=== PATIENT | female | born 1985 | race Caucasian/White ===

== ENCOUNTER → 2016-12-26 | Outpatient (REF) | payer BC | LOC: M SFHCWAGY 15:36 | PROVIDERS: ATTEND Nurse Practitioner Family | DX: Z01.419 Encounter for gynecological examination (general) (routine) without abnormal findings (principal); Z11.51 Encounter for screening for human papillomavirus (HPV); R87.610 Atypical squamous cells of undetermined significance on cytologic smear of cervix (ASC-US) ==

== ENCOUNTER → 2016-12-26 | Outpatient (REF) | payer BC | LOC: M LAB REF 17:50 | PROVIDERS: ATTEND Nurse Practitioner Family | DX: Z11.3 Encounter for screening for infections with a predominantly sexual mode of transmission (principal) ==

== ENCOUNTER → 2017-01-14 | Outpatient (REF) | payer BC | LOC: M SFHCWAGY 08:43 | PROVIDERS: ATTEND Nurse Practitioner Women's Health | DX: N87.0 Mild cervical dysplasia (principal) ==

== ENCOUNTER → 2017-07-12 | Outpatient (REF) | payer BC ==
[2017-07-12 11:44] LABS: ALBUMIN 3.5 GM/DL (3.2-5.2); ALKALINE PHOSPHATASE 48 U/L (45-117); ALT/SGPT 48 U/L (12-78); ANION GAP 10 MEQ/L (8-16); AST/SGOT 28 U/L (7-37); BILIRUBIN,TOTAL 0.3 MG/DL (0.2-1.0); BLOOD UREA NITROGEN 12 MG/DL (7-18); CALCIUM LEVEL 8.4 MG/DL (8.5-10.1); CARBON DIOXIDE LEVEL 27 MEQ/L (21-32); CHLORIDE LEVEL 103 MEQ/L (98-107); CHOLESTEROL LEVEL 202 MG/DL (<200); GLOMERULAR FILTRATION RATE > 60.0 (>60); GLUCOSE, FASTING 87 MG/DL (70-105); POTASSIUM SERUM 4.1 MEQ/L (3.5-5.1); SODIUM LEVEL 140 MEQ/L (136-145); TRIGLYCERIDES LEVEL 67 MG/DL (<150)
== END ==
LOC: M SFHCCAPE 07:57 → M LABDRAWC 08:09
PROVIDERS: ATTEND Physician Assistant
DX: E78.5 Hyperlipidemia, unspecified (principal)

== ENCOUNTER → 2018-06-02 | Outpatient (REF) | payer OTHER ==
[2018-06-04 14:13] LABS: HPV HYBRID CAPTURE II Negative (Negative)
== END ==
LOC: M SFHCWAGY 16:03
DX: Z12.4 Encounter for screening for malignant neoplasm of cervix (principal)

== ENCOUNTER → 2018-10-20 | Outpatient (REF) | payer OTHER ==
[2018-10-20 12:23] LABS: BASO # 0.1 10^3/uL (0.0-0.2); BASO % 0.9 % (0.0-1.0); EOS # 0.6 10^3/uL (0.0-0.50); EOS % 5.6 % (0.0-3.0); HEMATOCRIT 42.1 % (36.0-47.0); HEMOGLOBIN 13.2 g/dl (12.0-15.5); LYMPH # 3.1 10^3/uL (1.5-4.5); MEAN CORPUSCULAR HEMOGLOBIN 27.5 pg (27.0-33.0); MEAN CORPUSCULAR HGB CONC 31.4 g/dl (32.0-36.5); MEAN CORPUSCULAR VOLUME 87.7 fl (80.0-96.0); MONO # 0.6 10^3/uL (0.0-0.8); MONO % 5.8 % (0.0-5.0); NEUTROPHILS # 5.8 10^3/uL (1.8-7.7); NEUTROPHILS % 57.1 % (36.0-66.0); PLATELET COUNT, AUTOMATED 330 10^3/uL (150-450); WHITE BLOOD COUNT 10.2 10^3/uL (4.0-10.0)
[2018-10-20 12:35] LABS: ALBUMIN 3.4 GM/DL (3.2-5.2); ALT/SGPT 30 U/L (12-78); BILIRUBIN,TOTAL 0.2 MG/DL (0.2-1.0); BLOOD UREA NITROGEN 9 MG/DL (7-18); CALCIUM LEVEL 8.3 MG/DL (8.5-10.1); CARBON DIOXIDE LEVEL 27 MEQ/L (21-32); CHLORIDE LEVEL 106 MEQ/L (98-107); CHOLESTEROL LEVEL 158 MG/DL (<200); CREATININE FOR GFR 0.77 MG/DL (0.55-1.30); FREE T4 0.87 NG/DL (0.76-1.46); GLOMERULAR FILTRATION RATE > 60.0 (>60); GLUCOSE, FASTING 100 MG/DL (70-100); HDL CHOLESTEROL 61 MG/DL (>40); LDL CHOLESTEROL 80 MG/DL (<100); NON-HDL-C 97 MG/DL; POTASSIUM SERUM 3.9 MEQ/L (3.5-5.1); SODIUM LEVEL 141 MEQ/L (136-145); TOTAL 25(OH) VITAMIN D 25.7 NG/ML (30.0-100.0); TOTAL PROTEIN 6.9 GM/DL (6.4-8.2); TRIGLYCERIDES LEVEL 85 MG/DL (<150)
[2018-10-20 12:54] LABS: HEMOGLOBIN A1c 5.4 %
== END ==
LOC: M SFHCCLAY 07:21
PROVIDERS: ATTEND Physician Assistant
DX: E78.5 Hyperlipidemia, unspecified (principal); E66.01 Morbid (severe) obesity due to excess calories

== ENCOUNTER → 2019-07-27 | Outpatient (CLI) | payer OTHER ==
--- NOTE | 2019-08-12 04:04 | ECWPNPC ---
PATIENT NAME: DARIN SAM : 1985 GENDER: FEMALE VISIT DATE: 07/27/2019 DISCHARGE DATE: 07/27/19 1604 VISIT LOCKED DATE TIME: PHYSICIAN: BRAIN TOVAR MD RESOURCE: BRAIN TOVAR MD REASON FOR APPOINTMENT 1. CHRONIC LOW BACK PAIN HISTORY OF PRESENT ILLNESS PAIN SCREENING: PATIENT HAS A COMPLAINT OF ACUTE OR CHRONIC PAIN :YES 33 YEAR OLD FEMALE PATIENT WITH A HISTORY OF CHRONIC LOW BACK PAIN. THE PATIENT DESCRIBES THE PAIN ACHING, SHARP, STABBING, SHOOTING, AND INTERMITTENT WITH A PAIN SCORE OF 4-9/10 DEPENDING ON PHYSICAL ACTIVITY. THE PATIENT STATES HER PAIN BEGINS IN HER LOW BACK AND RADIATES DOWN BOTH LEGS. THE PATIENT SAYS HER LOW BACK PAIN BEGAN AROUND 6 YEARS AGO. THE PATIENT SAYS HER PAIN INCREASES WITH ACTIVITIES AND IS AFFECTING HER ABILITY TO PERFORM HER DAILY ACTIVITIES SUCH WALKING, CLEANING, AND GROCERY SHOPPING. PATIENT DENIES UNEXPLAINABLE WEIGHT LOSS, FEVER, CHILLS, NEW CHANGES ON HER URINARY OR BOWEL CONTROL. FALL RISK SCREENING: SCREENING :NO FALLS REPORTED IN THE LAST YEAR CURRENT MEDICATIONS TAKING PROBIOTIC - CAPSULE 1 CAPSULE ORALLY DAILY TAKING PRE-PADILLA - TABLET 1 TABLET ORALLY ONCE A DAY NOT-TAKING NAPROSYN 500 MG TABLET 1 TABLET WITH FOOD OR MILK NEEDED ORALLY EVERY 12 HRS NOT-TAKING MULTIVITAMINS TAB TABLET 1 PO ORALLY DAILY NOT-TAKING FOLIC ACID 400 MCG TABLET 1 TABLET ORALLY ONCE A DAY NOT-TAKING HYDROXYZINE HCL 25 MG TABLET 1-2 TABLETS NEEDED ORALLY EVERY 8 HRS NOT-TAKING ESCITALOPRAM OXALATE 10 MG TABLET 1 TABLET ORALLY ONCE A DAY NOT-TAKING CYCLOBENZAPRINE HCL 5 MG TABLET 1 TABLET NEEDED ORALLY THREE TIMES A DAY NOT-TAKING IBUPROFEN 400 MG TABLET 1 TABLET ORALLY THREE TIMES A DAY NOT-TAKING BENZONATATE 200 MG CAPSULE 1 CAPSULE ORALLY THREE TIMES A DAY NOT-TAKING [facility] VITAMIN D3 1000 UNIT TABLET CHEWABLE 1 TABLET ORALLY ONCE A DAY NOT-TAKING LOSEASONIQUE 0.1-0.02 & 0.01 MG TABLET 1 TABLET ORALLY ONCE A DAY DISCONTINUED TAMIFLU 75 MG CAPSULE 1 CAPSULE ORALLY TWICE A DAY MEDICATION LIST REVIEWED AND RECONCILED WITH THE PATIENT PAST MEDICAL HISTORY DYSMENORRHEA[MODERATE] KIDNEY INFECTION 05/12 BACK PAIN ANXIETY ALLERGIES N.K.D.A. SURGICAL HISTORY COLPOSCOPY WITH [facility] 01/02/2016 & 01/14/17 LASIK BILATERALLY FAMILY HISTORY FATHER: ALIVE 61 YRS, DIAGNOSED WITH HYPERTENSION MOTHER: ALIVE 58 YRS, HYPERTENSION SIBLINGS: ALIVE PATERNAL GRAND FATHER: ALIVE, [place] MATERNAL GRAND FATHER: , CANCER, PROSTATE, CANCER, SKIN 1 SISTER(S) - HEALTHY. FAMILY HISTORY OF SKIN CA, LEUKEMIA AND CA OF THE ESOPHAGUS. SOCIAL HISTORY GENERAL: TOBACCO USE ARE YOU A:FORMER SMOKER HOW LONG HAS IT BEEN SINCE YOU LAST SMOKED?1-5 YEARS VAPORNO E-CIGARETTENO HIV / HEP-C SCREENING HIV TEST OFFERED TO PATIENT:YES DATE OFFERED:07/09/2017 TEST ACCEPTED:NO HEP-C TEST OFFERED TO PATIENT:YES DATE OFFERED:07/09/2017 REASON:PATIENT DECLINED TEST ACCEPTED:NO REASON:PATIENT DECLINED OTHERS AT HOME: SPOUSE. EDUCATION LEVEL OF EDUCATION:COLLEGE DIET: REGULAR. LANGUAGE VIETNAMESE. DOMESTIC VIOLENCE DO YOU FEEL SAFE IN YOUR ENVIRONMENT?YES BMI CARE GOAL FOLLOW-UP ABOVE NORMAL BMI FOLLOW-UPGIVING ENCOURAGEMENT TO EXERCISE RECREATIONAL DRUG USE DRUG USE?NO EXERCISE: 3-4 X A WEEK. 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 NEEDED?NO PAIN CLINIC PFS, CLERGY, PUBLIC HEALTH REFERRALS HAS THE PATIENT BEEN EDUCATED REGARDING HIS/HER PLAN OF CARE?YES HAS THE PATIENT BEEN EDUCATED REGARDING PAIN, THE RISK FOR PAIN, THE IMPORTANCE OF EFFECTIVE PAIN MANAGEMENT, AND THE PAIN ASSESSMENT PROCESS?YES LATEX QUESTIONNAIRE LATEX ALLERGY : HAVE YOU EVER DEVELOPED ANY TYPE OF REACTION AFTER HANDLING LATEX PRODUCTS SUCH RUBBER GLOVES, CONDOMS, DIAPHRAGMS, BALLOONS, SOCKS, OR UNDERWEAR?NO LATEX ALLERGY : HAVE YOU EVER DEVELOPED ANY TYPE OF REACTION DURING OR AFTER DENTAL APPOINTMENT, VAGINAL/RECTAL EXAMINATION, SURGICAL PROCEDURE, OR ANY OTHER EXPOSURE?NO LATEX RISK : HAVE YOU EVER HAD ANY DIFFICULTY BREATHING OR HIVES AFTER EATING OR HANDLING ANY FRUITS, OR VEGETABLES; SUCH KIWI, BANANAS, STONE FRUITS, OR CHESTNUTSNO LATEX RISK : DO YOU HAVE A PREVIOUS PERSONAL HISTORY OF MORE THAN NINE SURGERIES, SPINA BIFIDA, OR REPEATED CATHERIZATIONS? NO LATEX RISK : ARE YOU FREQUENTLY EXPOSED TO LATEX PRODUCTS IN YOUR OCCUPATION?NO DATE ASKED : 07/27/2019 CAFFEINE CAFFEINE USE?YES 1-2 CUPS OF COFFEE ADVANCE DIRECTIVE ADVANCE DIRECTIVE DISCUSSED WITH PATIENT:YES 07/27/19 PT DOES NOT HAVE ANY ADVANCED DIRECTIVES AND SHE DECLINES INFORMATION ON HCP AT THIS TIME. AD ADVENTIST NO BAPTIST BELIEFS THAT WOULD IMPACT HEALTH CARE. MARITAL STATUS: SINGLE. 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 SEXUAL HX HAD SEX IN THE LAST 12 MONTHS (VAGINAL, ORAL, OR ANAL)?YES WITHMEN ONLY PREVENTION STRATEGIES DISCUSSED:OTHER USE PROTECTION?YES HOW OFTEN?ALL OF THE TIME LMP:04/03/18 HAVE YOU EVER HAD AN STD?NO HOSPITALIZATION/MAJOR DIAGNOSTIC PROCEDURE NO HOSPITALIZATION HISTORY. REVIEW OF SYSTEMS REVIEWED BY: PROVIDER: BRAIN TOVAR MD . CONSTITUTIONAL: ANY CHANGE IN YOUR MEDICAL CONDITION? NO . CHILLS NO . FEVER NO . INFECTION: DO YOU HAVE NEW INFECTIONS? NO . DO YOU HAVE HISTORY OF MRSA? NO . MUSCULOSKELETAL: ANY NEW PATTERNS OF PAIN OR NUMBNESS? YES, PAIN WILL COME AND GO WITH TIMES BEING SEVERE WHERE SHE IS UNABLE TO DO ANYTHING . SYTEMIC LUPUS NO . GASTROENTEROLOGY: ANY NEW CHANGE IN BOWEL CONTROL? NO . BARRETTS ESOPHAGUS NO . CIRRHOSIS NO . HEPATITIS NO . LIVER FAILURE NO . ACID REFLUX NO . UNEXPLAINED WEIGHT LOSS NO . GENITOURINARY: ANY NEW CHANGE IN BLADDER CONTROL? NO . IS THERE A CHANCE YOU COULD BE ? NO . HEMATOLOGY/LYMPH: DO YOU TAKE ANY BLOOD THINNERS? (FOR EXAMPLE- COUMADIN, PLAVIX, AGGRENOX, PLATEL, PRADAXA, OR XARELTO) NO . WHEN WAS YOUR LAST DOSE? DATE: TIME: . LOW PLATELET COUNT NO . SICKLE CELL DISEASE NO . VON WILLIEBRANDS NO . FACTOR V LEIDEN NO . THALLASEMIA NO . ANEMIA NO . EASY BRUISING NO . NEUROLOGY: HAVE YOU FALLEN IN THE PAST 12 MONTHS? NO . ANY NEW EXTREMITY NUMBNESS OR WEAKNESS? NO . HEAD INJURY NO . DEMENTIA NO . CEREBRAL PALSY NO . MULTIPLE SCLEROSIS NO . DIZZINESS NO . HEADACHE NO . STROKES NO . VERTIGO NO . CARDIOLOGY: DO YOU HAVE A PACEMAKER OR DEFIBRILLATOR? NO . ANGINA NO . HEART ATTACK NO . HEART SURGERY NO . CONGESTIVE HEART FAILURE/FLUID OVERLOAD NO . CHEST PAIN NO . HIGH BLOOD PRESSURE NO . IRREGULAR HEART BEAT NO . RESPIRATORY: HAVE YOU BEEN SICK IN THE PAST WEEK? NO . FEVER NO . FLU LIKE SYMPTOMS? NO . CPAP NO . BYPAP NO . ASTHMA NO . EMPHYSEMA NO . CHRONIC LUNG DISEASES NO . SHORTNESS OF BREATH ON EXERTION NO . COUGH NO . SNORING YES . INTEGUMENTARY: DO YOU HAVE ANY RASHES OR OPEN SORES? NO . ALLERGIC/IMMUNO: ARE YOU ALLERGIC TO IV DYE? NO . ANY NEW ALLERGIES? NO . PSYCHIATRIC: DO YOU HAVE THOUGHTS OF HURTING YOURSELF OR SOMEONE ELSE? NO . ARE YOU ABUSED, NEGLECTED, OR IN AN UNSAFE ENVIRONMENT? NO . ENDOCRINOLOGY: ARE YOU DIABETIC? NO . THYROID DISORDER NO . OTHER: DO YOU NEED ANY PRESCRIPTIONS? NO . IF YES, PLEASE LIST: ____ . ANY NEW PROBLEMS WITH YOUR MEDICATIONS? NO . WHEN DID YOU LAST EAT? ____ . WHEN DID YOU LAST DRINK? ____ . WHAT DID YOU LAST DRINK? ____ . NAME OF PERSON DRIVING YOU HOME? ____ . DO YOU HAVE ANY OTHER QUESTIONS OR CONCERNS NO . VITAL SIGNS WT 257.6 LBS, HT 65 1/2, BMI 42.21 INDEX, BP 134/77 MM HG, HR 81 /MIN, RR 18 /MIN, TEMP 97.9 F, OXYGEN SAT % 98%, SAFE IN ENV? (Y/N) Y, NA INITIALS SC 14:38, REVIEWED BY: KRISTY. EXAMINATION GENERAL EXAMINATION: PATIENT IS ALERT O X 3 AND COOPERATIVE. LUNGS CLEAR, TO AUSCULTATION. HEART: NO MURMURS OR GALLOPS; FACIAL CRANIAL NERVES ARE GROSSLY NORMAL. GOOD SYMMETRY OF FACIAL MUSCLE MOVEMENT. NORMAL VISUAL HERNANDEZ. TENDERNESS IN THE LOW BACK OVER THE SACROILIAC JOINT. FABERE TEST IS POSITIVE FOR BILATERAL SACROILIAC JOINT DYSFUNCTION. MRI OF THE LUMBAR SPINE DONE ON 11/23/2015 SHOWS NORMAL RESULTS. ASSESSMENTS SACROILIITIS, NOT ELSEWHERE CLASSIFIED - M46.1 (PRIMARY) SACROILIAC JOINT DYSFUNCTION - M53.3 TREATMENT SACROILIITIS, NOT ELSEWHERE CLASSIFIED [facility] PELVIS WITHOUT [id number] CLINICAL NOTES: WE DISCUSSED SEVERAL ISSUES WITH MS. SAM'S PAIN MANAGEMENT CASE. I AM REQUESTING FOR A PELVIC CT SCAN TO BE DONE TO CHECK FOR ANY POTENTIAL ISSUES OVER THE PELVIC REGION. IF NOTHING ABNORMAL SHOWS, I WILL MOVE FORWARD WITH A BILATERAL SACROILIAC JOINT BLOCK. THE PATIENT WILL FOLLOW UP WITH THE NURSE PRACTITIONER IN 2 WEEKS TO GO OVER THE CT SCAN RESULTS AND DISCUSS OPTIONS TO MOVE FORWARD WITH. INSTRUCTIONS WERE GIVEN, QUESTIONS WERE ANSWERED, PATIENT REPORTS UNDERSTANDING AND AGREES WITH THE PLAN. I, PEARL PASTRANA, DOCUMENTED THE ABOVE INFORMATION ACTING A SCRIBE FOR DR. TOVAR. I HAVE REVIEWED THE ABOVE DOCUMENT, WRITTEN BY PEARL URBANOIBReyes AND I VERIFY THAT IT IS ACCURATE. DEAR CHIKA HWANG PA-C: THANK YOU FOR YOUR KIND REFERRAL OF DARIN SAM. IF YOU WANT TO DISCUSS HER CASE WITH ME PLEASE CALL ME AT THE PAIN CENTER AT [phone]. SINCERELY, BRAIN TOVAR MD PAIN MEDICINE . SACROILIAC JOINT DYSFUNCTION [facility] CT PELVIS WITHOUT [id number] PROCEDURE CODES FA211 ESTABILISHED PATIENT [facility] FACILITY CHARGE G8427 CURRENT MEDS W/DOSAGES DOCUMENTED G8730 PAIN ASSESS POS TOOL F/U PLAN DOC DISPOSITION & COMMUNICATION FOLLOW UP 2 WEEKS (REASON: ORDER PELVIC CT/F/UP W/ VEGETABLE GROWER IN [address] RESULTS) ELECTRONICALLY SIGNED BY BRAIN TOVAR MD, MD ON 08/11/2019 AT 07:54 PM EST DISCLAIMER : THIS IS A VISIT SUMMARY EXTRACTED FROM THE [employer] CHART. IT IS NOT A COPY OF THE [employer] PROGRESS NOTE. MTDShyam
== END ==
LOC: M PAIN 14:30
PROVIDERS: ATTEND Anesthesiology
DX: M46.1 Sacroiliitis, not elsewhere classified (principal); M53.3 Sacrococcygeal disorders, not elsewhere classified; G89.29 Other chronic pain; Z86.59 Personal history of other mental and behavioral disorders; Z87.891 Personal history of nicotine dependence; E66.01 Morbid (severe) obesity due to excess calories; Z68.41 Body mass index [BMI] 40.0-44.9, adult; Z79.899 Other long term (current) drug therapy

== ENCOUNTER → 2019-08-11 | Outpatient (REF) | payer OTHER | LOC: M PLALAB 09:04 | PROVIDERS: ATTEND Nurse Practitioner Family | DX: Z12.4 Encounter for screening for malignant neoplasm of cervix (principal) ==

== ENCOUNTER → 2019-08-14 | Outpatient (CLI) | payer OTHER ==
--- NOTE | 2019-08-15 07:52 | REP ---
HISTORY: History of sacroiliitis. COMPARISON: None. Bone and soft tissue windowing was obtained. Heavy sclerosis is seen involving the iliac side of each sacroiliac joint. The sacroiliac joints are nonfused. There is no prominent marginal osteophytosis. There is no evidence of an acute fracture or destructive osseous lesion. The hip joint spaces are symmetric and well maintained. Limited evaluation of the intrapelvic contents shows no evidence of an abnormality. IMPRESSION: Chronic changes seen involving the iliac side of each sacroiliac joint and consistent with chronic sacroiliitis. Electronically Signed by Cricket Jameson DO 08/17/2019 01:17 P
== END ==
LOC: M RAD 15:13
PROVIDERS: ATTEND Anesthesiology
DX: M54.5 Low back pain (principal)

== ENCOUNTER → 2019-09-08 | Outpatient (CLI) | payer OTHER ==
--- NOTE | 2019-09-22 03:06 | ECWPNPC ---
PATIENT NAME: DARIN SAM : 1985 GENDER: FEMALE VISIT DATE: 09/08/2019 DISCHARGE DATE: 09/08/19 1301 VISIT LOCKED DATE TIME: PHYSICIAN: LAURA HURT RESOURCE: LAURA HURT REASON FOR APPOINTMENT 1. REVIEW MRI HISTORY OF PRESENT ILLNESS HISTORY OF PRESENT ILLNESS: 33-YEAR-OLD FEMALE HERE FOR FOLLOW-UP AND REVIEW OF CT SCAN OF THE PELVIS WITHOUT CONTRAST DONE ON 08/14/[address] TOVAR. THIS IS SHOWING HEAVY SCLEROSIS INVOLVING THE ILIAC SIDE OF EACH SACROILIAC JOINT. THIS IS NOTED CHRONIC CHANGES SEEN INVOLVING THE ILIAC SIDE OF EACH SACROILIAC JOINT AND CONSISTENT WITH CHRONIC SACROILIITIS. REPORTING INTERMITTENT LOW BACK PAIN. PATIENT PAIN LEVEL A 4-7/10. DISCUSSED TREATMENT OPTIONS TO INCLUDE BILATERAL SACROILIAC JOINT STEROID INJECTION. POTENTIAL RISKS AND BENEFITS WERE REVIEWED. PAIN THE PATIENT DESCRIBES THE PAIN... FALL RISK SCREENING: SCREENING :NO FALLS REPORTED IN THE LAST YEAR CURRENT MEDICATIONS TAKING PROBIOTIC - CAPSULE 1 CAPSULE ORALLY DAILY TAKING PRE-PADILLA - TABLET 1 TABLET ORALLY ONCE A DAY NOT-TAKING NAPROSYN 500 MG TABLET 1 TABLET WITH FOOD OR MILK NEEDED ORALLY EVERY 12 HRS NOT-TAKING MULTIVITAMINS TAB TABLET 1 PO ORALLY DAILY NOT-TAKING FOLIC ACID 400 MCG TABLET 1 TABLET ORALLY ONCE A DAY NOT-TAKING HYDROXYZINE HCL 25 MG TABLET 1-2 TABLETS NEEDED ORALLY EVERY 8 HRS NOT-TAKING ESCITALOPRAM OXALATE 10 MG TABLET 1 TABLET ORALLY ONCE A DAY NOT-TAKING CYCLOBENZAPRINE HCL 5 MG TABLET 1 TABLET NEEDED ORALLY THREE TIMES A DAY NOT-TAKING IBUPROFEN 400 MG TABLET 1 TABLET ORALLY THREE TIMES A DAY NOT-TAKING BENZONATATE 200 MG CAPSULE 1 CAPSULE ORALLY THREE TIMES A DAY NOT-TAKING [facility] VITAMIN D3 1000 UNIT TABLET CHEWABLE 1 TABLET ORALLY ONCE A DAY MEDICATION LIST REVIEWED AND RECONCILED WITH THE PATIENT PAST MEDICAL HISTORY DYSMENORRHEA[MODERATE] KIDNEY INFECTION 05/12 BACK PAIN ANXIETY ALLERGIES N.K.D.A. SURGICAL HISTORY COLPOSCOPY WITH [facility]WIN 01/02/2016 & 01/14/17 MEET [place] 2017 FAMILY HISTORY FATHER: ALIVE 62 YRS, DIAGNOSED WITH HYPERTENSION MOTHER: ALIVE 59 YRS, HYPERTENSION SIBLINGS: ALIVE PATERNAL GRAND FATHER: ALIVE, [place] MATERNAL GRAND FATHER: , CANCER, PROSTATE, CANCER, SKIN 1 SISTER(S) - HEALTHY. FAMILY HISTORY OF SKIN CA, LEUKEMIA AND CA OF THE ESOPHAGUS. SOCIAL HISTORY GENERAL: TOBACCO USE ARE YOU A:FORMER SMOKER HOW LONG HAS IT BEEN SINCE YOU LAST SMOKED?1-5 YEARS VAPORNO E-CIGARETTENO HIV / HEP-C SCREENING HIV TEST OFFERED TO PATIENT:YES DATE OFFERED:07/09/2017 TEST ACCEPTED:NO HEP-C TEST OFFERED TO PATIENT:YES DATE OFFERED:07/09/2017 REASON:PATIENT DECLINED TEST ACCEPTED:NO REASON:PATIENT DECLINED OTHERS AT HOME: SPOUSE. EDUCATION LEVEL OF EDUCATION:COLLEGE DIET: REGULAR. LANGUAGE FRISIAN. DOMESTIC VIOLENCE DO YOU FEEL SAFE IN YOUR ENVIRONMENT?YES BMI CARE GOAL FOLLOW-UP ABOVE NORMAL BMI FOLLOW-UPGIVING ENCOURAGEMENT TO EXERCISE RECREATIONAL DRUG USE DRUG USE?NO EXERCISE: OCC. LEARNING BARRIERS / SPECIAL NEEDS CHANGE FROM LAST VISIT?NO BARRIERS TO LEARNING?NO HEARING IMPAIRED?NO VISION IMPAIRED?NO COGNITIVELY IMPAIRED?NO READINESS TO LEARN?YES LEARNING PREFERENCES?NO LEARNING CAPABILITIES PRESENT?YES EMOTIONAL BARRIERS?NO SPECIAL DEVICES?NO CONDUCTOR SLEEPING CAR NEEDED?NO PAIN CLINIC PFS, CLERGY, PUBLIC HEALTH REFERRALS HAS THE PATIENT BEEN EDUCATED REGARDING HIS/HER PLAN OF CARE?YES HAS THE PATIENT BEEN EDUCATED REGARDING PAIN, THE RISK FOR PAIN, THE IMPORTANCE OF EFFECTIVE PAIN MANAGEMENT, AND THE PAIN ASSESSMENT PROCESS?YES LATEX QUESTIONNAIRE LATEX ALLERGY : HAVE YOU EVER DEVELOPED ANY TYPE OF REACTION AFTER HANDLING LATEX PRODUCTS SUCH RUBBER GLOVES, CONDOMS, DIAPHRAGMS, BALLOONS, SOCKS, OR UNDERWEAR?NO LATEX ALLERGY : HAVE YOU EVER DEVELOPED ANY TYPE OF REACTION DURING OR AFTER DENTAL APPOINTMENT, VAGINAL/RECTAL EXAMINATION, SURGICAL PROCEDURE, OR ANY OTHER EXPOSURE?NO DATE ASKED : 08/11/2019 LATEX RISK : HAVE YOU EVER HAD ANY DIFFICULTY BREATHING OR HIVES AFTER EATING OR HANDLING ANY FRUITS, OR VEGETABLES; SUCH KIWI, BANANAS, STONE FRUITS, OR CHESTNUTSNO LATEX RISK : DO YOU HAVE A PREVIOUS PERSONAL HISTORY OF MORE THAN NINE SURGERIES, SPINA BIFIDA, OR REPEATED CATHERIZATIONS? NO LATEX RISK : ARE YOU FREQUENTLY EXPOSED TO LATEX PRODUCTS IN YOUR OCCUPATION?NO CAFFEINE CAFFEINE USE?YES 1-2 CUPS OF COFFEE ADVANCE DIRECTIVE ADVANCE DIRECTIVE DISCUSSED WITH PATIENT:YES 07/27/19 PT DOES NOT HAVE ANY ADVANCED DIRECTIVES AND SHE DECLINES INFORMATION ON HCP AT THIS TIME. AD RESTORATION NO MANDAEISM BELIEFS THAT WOULD IMPACT HEALTH CARE. MARITAL STATUS: . 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 SEXUAL HX HAD SEX IN THE LAST 12 MONTHS (VAGINAL, ORAL, OR ANAL)?YES WITHMEN ONLY PREVENTION STRATEGIES DISCUSSED:OTHER USE PROTECTION?YES HOW OFTEN?ALL OF THE TIME LMP:04/03/18 HAVE YOU EVER HAD AN STD?NO HOSPITALIZATION/MAJOR DIAGNOSTIC PROCEDURE DENIES PAST HOSPITALIZATION REVIEW OF SYSTEMS REVIEWED BY: PROVIDER: LAURA TELLO . CONSTITUTIONAL: ANY CHANGE IN YOUR MEDICAL CONDITION? NO . CHILLS NO . FEVER NO . INFECTION: DO YOU HAVE NEW INFECTIONS? NO . DO YOU HAVE HISTORY OF MRSA? NO . MUSCULOSKELETAL: ANY NEW PATTERNS OF PAIN OR NUMBNESS? NO . GASTROENTEROLOGY: ANY NEW CHANGE IN BOWEL CONTROL? NO . GENITOURINARY: ANY NEW CHANGE IN BLADDER CONTROL? NO . IS THERE A CHANCE YOU COULD BE ? NO . HEMATOLOGY/LYMPH: DO YOU TAKE ANY BLOOD THINNERS? (FOR EXAMPLE- COUMADIN, PLAVIX, AGGRENOX, PLATEL, PRADAXA, OR XARELTO) NO . WHEN WAS YOUR LAST DOSE? DATE: TIME: . NEUROLOGY: HAVE YOU FALLEN IN THE PAST 12 MONTHS? NO . ANY NEW EXTREMITY NUMBNESS OR WEAKNESS? NO . CARDIOLOGY: DO YOU HAVE A PACEMAKER OR DEFIBRILLATOR? NO . RESPIRATORY: HAVE YOU BEEN SICK IN THE PAST WEEK? NO . FEVER NO . FLU LIKE SYMPTOMS? NO . COUGH NO . INTEGUMENTARY: DO YOU HAVE ANY RASHES OR OPEN SORES? NO . ALLERGIC/IMMUNO: ARE YOU ALLERGIC TO IV DYE? NO . ANY NEW ALLERGIES? NO . PSYCHIATRIC: DO YOU HAVE THOUGHTS OF HURTING YOURSELF OR SOMEONE ELSE? NO . ARE YOU ABUSED, NEGLECTED, OR IN AN UNSAFE ENVIRONMENT? NO . ENDOCRINOLOGY: ARE YOU DIABETIC? NO . OTHER: DO YOU NEED ANY PRESCRIPTIONS? NO . IF YES, PLEASE LIST: ____ . ANY NEW PROBLEMS WITH YOUR MEDICATIONS? NO . WHEN DID YOU LAST EAT? ____ . WHEN DID YOU LAST DRINK? ____ . WHAT DID YOU LAST DRINK? ____ . NAME OF PERSON DRIVING YOU HOME? ____ . DO YOU HAVE ANY OTHER QUESTIONS OR CONCERNS NO . VITAL SIGNS WT 261.8 LBS, HT 65 1/2, BMI 42.90 INDEX, BP 139/89 MM HG, HR 76 /MIN, RR 18 /MIN, TEMP 97.4 F, OXYGEN SAT % 98%, NA INITIALS SC 12:22. EXAMINATION GENERAL EXAMINATION: GENERAL ALERT,NO DISTRESS . PSYCH AFFECT NORMAL . LUNGS: LUNG SOUNDS ARE CLEAR . HEART: HEART RATE REGULAR . MUSCULOSKELETAL: MST 5/5 BILAT. LOWER EXTREMITIES . FOR BILAT. SIJ TENDERNESS BILAT. SIJ . DIAGNOSTIC TESTS REVIEWED. CT OF THE PELVIS WITHOUT CONTRAST 08/14/2019 . ASSESSMENTS BILATERAL SACROILIITIS - M46.1 (PRIMARY) TREATMENT BILATERAL SACROILIITIS NOTES: BILATERAL SACROILIAC JOINT INJECTION. OTHERS NOTES: SACROILIAC JOINT PAIN, SACROILIAC JOINT STEROID INJECTION, SACROILIAC JOINT DYSFUNCTION HOME CARE MATERIAL WAS PUBLISHED TO PORTAL,SACROILIAC JOINT PAIN MATERIAL WAS PRINTED,SACROILIAC JOINT PAIN MATERIAL WAS PRINTED,SACROILIAC JOINT DYSFUNCTION HOME CARE MATERIAL WAS PRINTED. PREVENTIVE MEDICINE PAIN CLINIC TEACHING: PROCEDURE TEACHING PRE SACROILIAC JOINT INJECTION INSTRUCTIONS REVIEWED WITH PT. VERBALIZED UNDERSTANDING.. PROCEDURE CODES FA211 ESTABILISHED PATIENT [facility] FACILITY CHARGE DISPOSITION & COMMUNICATION FOLLOW UP POST (REASON: BILATERAL SACROILIAC JOINT INJECTION) ELECTRONICALLY SIGNED BY OMER OLIVAS ON 09/21/2019 AT 03:45 PM EST DISCLAIMER : THIS IS A VISIT SUMMARY EXTRACTED FROM THE [employer] CHART. IT IS NOT A COPY OF THE [employer] PROGRESS NOTE. ALAN
== END ==
LOC: M PAIN 11:00
PROVIDERS: ATTEND Nurse Practitioner Family
DX: M46.1 Sacroiliitis, not elsewhere classified (principal)

== ENCOUNTER → 2019-11-13 | Outpatient (REF) | payer OTHER | LOC: M LAB REF 17:20 | PROVIDERS: ATTEND Dermatology | DX: D49.2 Neoplasm of unspecified behavior of bone, soft tissue, and skin (principal) ==

== ENCOUNTER → 2019-11-20 | Outpatient (REF) | payer OTHER ==
[2019-11-20 16:12] LABS: HEMATOCRIT 40.3 % (36.0-47.0); HEMOGLOBIN 13.2 g/dl (12.0-15.5); MEAN CORPUSCULAR HEMOGLOBIN 28.7 pg (27.0-33.0); MEAN CORPUSCULAR HGB CONC 32.8 g/dl (32.0-36.5); MEAN CORPUSCULAR VOLUME 87.6 fl (80.0-96.0); PLATELET COUNT, AUTOMATED 277 10^3/uL (150-450); WHITE BLOOD COUNT 12.7 10^3/uL (4.0-10.0)
[2019-11-20 17:56] LABS: CHLAMYDIA DNA AMPLIFICATION NEGATIVE (NEGATIVE); GC DNA AMPLIFICATION NEGATIVE (NEGATIVE)
[2019-11-23 08:53] LABS: HIV 1&2 SCREEN CENTAUR NEGATIVE (NEGATIVE); RUBELLA IgG QUALITATIVE IMMUNE (IMMUNE)
[2019-11-23 11:13] LABS: HEPATITIS B SURFACE ANTIGEN NEGATIVE (NEGATIVE); HEPATITIS C VIRUS ABY INDEX 0.1 INDEX (<0.8)
== END ==
LOC: M LABDRAWC 15:50
PROVIDERS: ATTEND Advanced Practice Midwife
DX: Z34.01 Encounter for supervision of normal first pregnancy, first trimester (principal)

== ENCOUNTER → 2019-12-24 | Outpatient (CLI) | payer OTHER ==
--- NOTE | 2019-12-24 18:29 | REP ---
Clinical: Anatomical evaluation. Comparison: None . Findings: Examination demonstrates a single live intrauterine in breech presentation. motion is identified by technologist. Placenta is noted anterior and grade zero without evidence for placenta previa or abruption. Amniotic fluid volume is normal. Cervix measures 5.1 cm in length and appears closed. No evidence for nuchal cord. Gestational age by LMP 18 weeks 0 days with RICHAR 05/26/2020 . Gestational age by current measurements 18 weeks 0 days with RICHAR 05/26/2020 . FHR equals 147 beats per minute. BPD 4.1 cm 18 weeks 3 days HC 14.8 cm 18 weeks 0 days AC 12.6 cm 18 weeks 1 day FL 2.4 cm 17 weeks 2 days HL 2.6 cm 18 weeks 2 days HC/AC ratio 1.18 Estimated weight 210 grams ( 39th percentile). Anatomical assessment demonstrates normal structures including cranium, choroid plexus, cavum, cerebellum/posterior fossa, lungs, diaphragm, stomach, cord insertion/three-vessel cord, bladder, and extremities. Limited evaluation of the facial features, heart/ventricular outflow tracts, kidneys and spine. Impression: 1. Single live intrauterine in breech presentation demonstrating appropriate estimated weight and interval growth. 2. Anatomical limitations as noted above. Electronically Signed by Avi Israel MD 12/24/2019 06:21 P
== END ==
LOC: M RAD 12:50
PROVIDERS: ATTEND Advanced Practice Midwife
DX: O99.212 Obesity complicating pregnancy, second trimester (principal); Z3A.18 18 weeks gestation of pregnancy

== ENCOUNTER → 2020-01-12 | Outpatient (CLI) | payer OTHER ==
--- NOTE | 2020-01-13 02:48 | REP ---
Clinical: Anatomical evaluation. Comparison: 12/24/2019 . Findings: Examination demonstrates a single live intrauterine in breech presentation. motion is identified by technologist. Placenta is noted anterior and grade I without evidence for placenta previa or abruption. Amniotic fluid volume is normal. Cervix measures 3.2 cm in length and appears closed. No evidence for nuchal cord. Gestational age by LMP 20 weeks 5 days with RICHAR 05/26/2020 . Gestational age by current measurements 20 weeks 1 day with RICHAR 05/30/2020 . FHR equals 161 beats per minute. Estimated weight 351 grams ( 36 percentile). Anatomical assessment demonstrates normal structures including cranium, choroid plexus, cavum, cerebellum/posterior fossa, facial features, lungs, four-chamber heart/ventricular outflow tracts, diaphragm, stomach, cord insertion/three-vessel cord, kidneys/bladder, spine, and extremities. Impression: Single live intrauterine in breech presentation demonstrating appropriate estimated weight and growth. Anatomical assessment is complete and normal. No gross abnormalities are identified.
== END ==
LOC: M WHC 11:03
PROVIDERS: ATTEND Advanced Practice Midwife
DX: O99.212 Obesity complicating pregnancy, second trimester (principal); Z3A.20 20 weeks gestation of pregnancy

== ENCOUNTER → 2020-04-26 | Outpatient (CLI) | payer OTHER ==
[~2020-04-26] MED LIST: IBUP80TA PO; MAPA500T2 PO; PRENTAB9 PO; TUMS500C PO
--- NOTE | 2020-05-25 09:34 | REP ---
LIMITED OBSTETRICAL ULTRASOUND: HISTORY: Gestational diabetes. For growth evaluation. COMPARISON: 01/12/20 TECHNIQUE: Transabdominal obstetrical ultrasound with color Doppler evaluation. FINDINGS: Live advanced gestation in cephalic presentation. heart rate equals 132 beats per minute. Placenta noted anteriorly, grade 2 and without placenta previa or abruption. Amniotic fluid volume is upper limits of normal (CHAN equals 18.3 cm). Cervix measures 3.1 cm in length and appears closed. Gestational age by current biometrical measurements is 36 weeks 5 days. BIOMETRY CHART: BPD 91 mm 36 weeks 0 days Head circumference 325 mm 36 weeks 6 days Abdominal circumference 328 mm 36 weeks 6 days Femur length 69 mm 35 weeks 5 days Humeral length 61 mm 35 weeks 5 days Estimated weight is 2054 (72nd percentile). Limited anatomical assessment without obvious abnormality. IMPRESSION: Single live advanced gestation in cephalic presentation demonstrating appropriate estimated weight and growth. Amniotic fluid volume is upper limits of normal. MTDD
== END ==
LOC: M WHC 08:32
PROVIDERS: ATTEND Advanced Practice Midwife
DX: O26.843 Uterine size-date discrepancy, third trimester (principal); O24.419 Gestational diabetes mellitus in pregnancy, unspecified control

== ENCOUNTER → 2020-05-03 | Outpatient (REF) | payer OTHER | LOC: M LAB REF 17:59 | PROVIDERS: ATTEND Advanced Practice Midwife | DX: Z34.03 Encounter for supervision of normal first pregnancy, third trimester (principal); Z36.85 Encounter for antenatal screening for Streptococcus B ==

== ENCOUNTER → 2020-05-18 | Outpatient (CLI) | payer OTHER ==
[2020-05-18 13:06] LABS: HEMATOCRIT 35.7 % (36.0-47.0); HEMOGLOBIN 11.4 g/dl (12.0-15.5); MEAN CORPUSCULAR HEMOGLOBIN 27.3 pg (27.0-33.0); MEAN CORPUSCULAR HGB CONC 31.9 g/dl (32.0-36.5); MEAN CORPUSCULAR VOLUME 85.4 fl (80.0-96.0); PLATELET COUNT, AUTOMATED 222 10^3/uL (150-450); RED BLOOD COUNT 4.18 10^6/uL (4.00-5.40); WHITE BLOOD COUNT 12.6 10^3/uL (4.0-10.0)
[2020-05-18 13:37] LABS: TOTAL PROTEIN,RANDOM URINE 20.1 MG/DL (0.0-12.0)
[2020-05-18 13:53] LABS: ALT/SGPT 18 U/L (12-78); BILIRUBIN,TOTAL 0.3 MG/DL (0.2-1.0); CREATININE FOR GFR 0.57 MG/DL (0.55-1.30); GLOMERULAR FILTRATION RATE > 60.0 (>60); LDH LACTATE DEHYDROGENASE 176 U/L (84-246); URIC ACID 5.2 MG/DL (2.6-6.0)
== END ==
LOC: M WUC 09:21
PROVIDERS: ATTEND Advanced Practice Midwife
DX: O16.3 Unspecified maternal hypertension, third trimester (principal); Z3A.00 Weeks of gestation of pregnancy not specified

== ENCOUNTER 2020-05-19 13:36 | Inpatient (IN) | payer OTHER ==
[2020-05-19] VITALS (11 sets, daily range): BP systolic 96–143; BP diastolic 51–81
[~2020-05-19] VITALS: Ht 165.1 cm; Wt 132.3 kg
[2020-05-19] MEDS ORDERED: PRENTAB9 PO (14:19)
[2020-05-19] MEDS ORDERED: TUMS500C PO (14:19)
[2020-05-19] MEDS ORDERED: MAPA500T2 PO (14:19)
--- NOTE | 2020-05-19 15:24 | HPEPDOC ---
Obstetrical History & Physical General Date of Admission May 19, 2020 at 13:36 History of Present Illness 34-year-old 1 who presents at 39 weeks for induction of labor secondary to gestational hypertension. She was seen in the office yesterday was noted to have elevated blood pressures. She was sent for preeclamptic labs and to return today for recheck of her blood pressure. Labs were normal she wants again had serial elevated blood pressures. 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 history Past Medical History Surgical History: Denies/None Family History Significant Family History: No pertinent family hx Social History Family situation: Spouse/partner home Psychosocial History: No pertinent psych hx * Smoker: non-smoker Alcohol: Denies Drugs: denies Allergies Coded Allergies: No Known Allergies (Unverified , 05/19/20) Medications Scheduled Calcium Carbonate (Tums) 200 Mg Tab.chew, 2 TAB PO Q4H for cough and congestion No.137/Iron/Folic Acd ( Vitamin Tablet) 1 Each Tablet, 1 TAB PO DAILY Miscellaneous Medications Acetaminophen (Mapap) 500 Mg Tablet, 1,000 MG PO Physical Examination Physical Examination GENERAL: Alert and oriented times three. BREAST: . ABDOMEN: Gravid and non-tender to touch. FETUS: Is vertex (VTX) by sterile vaginal examination (SVE), fetus is vertex (VTX) by Stevie. HEART RATE: Regular rate and rhythm. LUNGS: Clear to auscultation (CTA). Vital Signs/I&O Vital Signs Date Time Temp Pulse Resp B/P (MAP) Pulse Ox O2 Delivery O2 Flow Rate FiO2 05/19/20 14:45 87 18 131/74 (93) 05/19/20 13:55 97.1 Laboratory Data 24H LABS Laboratory Tests 2 05/19/20 13:52: Serology Scanned Report Hepatitis B Testing Pertinent Laboratoy Data Blood Type: B+ RBC Antibody Screen: Negative HIV: Negative Hepatitis B: Negative Hepatitis C: Negative Rapid Plasma Reagin: Nonreactive Rubella: Immune Chlamydia/Gonorrhea: Negative Anatomy Ultrasound Normal Anatomy: Yes Placenta Previa: No Vaginal Examination Station: -3 Cervical Consistency: Firm Cervical Position: Posterior Presentation: Cephalic presentation Assessment Variability: Moderate Accelerations: Positive Tocometer Contractions: No Assessment/Plan Assessment 34-year-old 1 at 39 weeks admitted for induction of labor secondary to gestational hypertension Reassuring status Patient and thoroughly counseled regards induction of labor. Discussed medications, PROCEDURE performed labor and delivery. 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 Group B Streptococcus (GBS) negative. Labs and intravenous (IV) per unit protocol. Counseled on Pitocin and induction of labor (IOL). Anticipate normal spontaneous delivery (). C-S as appropriate. LEOBARDO SERRANO MD. May 19, 2020 15:24
[2020-05-19] MEDS: miSOPROStol 50 MCG 1/2 TAB (S0191) PO SCH ×2 (15:27→19:59)
[2020-05-19 15:42] LABS: HEMATOCRIT 36.3 % (36.0-47.0); HEMOGLOBIN 11.3 g/dl (12.0-15.5); MEAN CORPUSCULAR HEMOGLOBIN 26.3 pg (27.0-33.0); MEAN CORPUSCULAR HGB CONC 31.1 g/dl (32.0-36.5); MEAN CORPUSCULAR VOLUME 84.4 fl (80.0-96.0); PLATELET COUNT, AUTOMATED 242 10^3/uL (150-450); WHITE BLOOD COUNT 13.2 10^3/uL (4.0-10.0)
[2020-05-19 15:59] LABS: ALT/SGPT 15 U/L (12-78); BILIRUBIN,TOTAL 0.2 MG/DL (0.2-1.0); CREATININE FOR GFR 0.61 MG/DL (0.55-1.30); GLOMERULAR FILTRATION RATE > 60.0 (>60); LDH LACTATE DEHYDROGENASE 183 U/L (84-246); URIC ACID 4.8 MG/DL (2.6-6.0)
[2020-05-20] VITALS (26 sets, daily range): BP systolic 96–153; BP diastolic 52–104
[2020-05-20] MEDS: miSOPROStol 50 MCG 1/2 TAB (S0191) PO SCH ×2 (00:02→06:36)
[2020-05-20] MEDS ORDERED: ACETAMINOPHEN 500 MG TAB PO PRN (06:10)
--- NOTE | 2020-05-20 09:53 | IPNPDOC ---
Text Note Date of Service The patient was seen on 05/20/20. NOTE Progress Reports mild cramping. Denies LOF, bleeding. Has showered and eaten breakfast. Cat I tracing. UC 2-3 minutes apart, mild SVE 2+/80/-3, far posterior. Bloody show with exam Start pitocin IOL. Will update physician. VS,Fishbone, I+O VS, Fishbone, I+O Laboratory Tests 05/19/20 15:04 Vital Signs Date Time Temp Pulse Resp B/P (MAP) Pulse Ox O2 Delivery O2 Flow Rate FiO2 05/20/20 06:46 77 18 120/63 (82) 05/20/20 05:36 97.5 05/19/20 19:24 98 I&O- Last 24 Hours up to 6 AM 05/20/20 06:00 Intake Total 950 ml Balance 950 ml Aislinn Nation CNM May 20, 2020 09:53
[2020-05-20] MEDS ORDERED: OXYTOCIN DRIP 30 UNITS in IV 1 EA IV SCH (10:00)
--- NOTE | 2020-05-20 18:56 | IPNPDOC ---
Text Note Date of Service The patient was seen on 05/20/20. NOTE Progress Patient feeling contractions more intensely in the last few hours. Some bloody show noted by patient upon wiping. Reports good FM, denies LOF. SVE 4/80/-3, posterior, soft by ITA Thompson with informed consent. BP remains labile, no severe range at present Cat 1 FHR tracing, FHR baseline of 140bpm. Contractions every 2-3 minutes, 60- 100 seconds duration, palpating moderate. Plan to continue with Pitocin at 20mu/min as tolerated. CBC ordered for epidural placement. Epidural per patient request. Dr Copeland aware of patient status VS,Chitoe, I+O VS, Brandon, I+O Vital Signs Date Time Temp Pulse Resp B/P (MAP) Pulse Ox O2 Delivery O2 Flow Rate FiO2 05/20/20 06:46 77 18 120/63 (82) 05/20/20 05:36 97.5 05/19/20 19:24 98 I&O- Last 24 Hours up to 6 AM 05/20/20 06:00 Intake Total 950 ml Balance 950 ml Aislinn Nation CNM May 20, 2020 18:55
[2020-05-20 19:18] LABS: HEMATOCRIT 35.2 % (36.0-47.0); HEMOGLOBIN 11.3 g/dl (12.0-15.5); MEAN CORPUSCULAR HEMOGLOBIN 27.2 pg (27.0-33.0); MEAN CORPUSCULAR HGB CONC 32.1 g/dl (32.0-36.5); MEAN CORPUSCULAR VOLUME 84.6 fl (80.0-96.0); PLATELET COUNT, AUTOMATED 212 10^3/uL (150-450); RED BLOOD COUNT 4.16 10^6/uL (4.00-5.40); WHITE BLOOD COUNT 12.7 10^3/uL (4.0-10.0)
[2020-05-20] MEDS ORDERED: FENTANYL 2MCG/ML ROPIVACAINE 0.2% IN 0.9% NACL 100ML IVBAG As Ordered ONE (19:32)
[2020-05-20] MEDS: FENTANYL/ROPIVACAINE/NACL BAG 100 ML EPIDURAL SCH (20:24)
[2020-05-20] MEDS: LR 1,000 ML IV SCH (20:30)
[2020-05-20] MEDS ORDERED: ONDANSETRON 4MG/2ML VIAL IV PRN (20:45)
[2020-05-20] MEDS ORDERED: REFRIGERATOR IV KEYS XX PRN (20:45)
[2020-05-20] MEDS ORDERED: LACTATED RINGER'S 1000 ML IV PRN (20:45)
[2020-05-20] MEDS ORDERED: EPIDURAL COMMENT XX SCH (20:45)
[2020-05-20] MEDS ORDERED: EPIDURAL/PCA KEYS XX PRN (20:45)
[2020-05-20] MEDS ORDERED: ePHEDrine SULFATE 25 MG/5 ML(5MG/ML) SYRINGE IV PRN (20:45)
[2020-05-20] MEDS ORDERED: NALOXONE INJ 0.4MG/1ML VIAL (J2310 PER 1MG) IV PRN (20:45)
[2020-05-20] MEDS ORDERED: diphenhydrAMINE 50MG/ML VIAL (J1200) IV PRN (20:45)
[2020-05-21] VITALS (33 sets, daily range): BP systolic 97–154; BP diastolic 54–87
[2020-05-21] MEDS: LR 1,000 ML IV SCH ×3 (03:00→14:29)
--- NOTE | 2020-05-21 05:09 | IPNPDOC ---
Text Note Date of Service The patient was seen on 05/21/20. NOTE Progress UC 3-4 minutes apart x 60 seconds Pitocin @ 10 mu FH 145, intermittent late decels, minimal/moderate variability, Cat II SVE 6-7/90/-2 Reduce pitocin. Observe FH status. Will update Dr Copeland if decels continue VS,Fishbone, I+O VS, Fishbone, I+O Laboratory Tests 05/20/20 19:02 Vital Signs Date Time Temp Pulse Resp B/P (MAP) Pulse Ox O2 Delivery O2 Flow Rate FiO2 05/21/20 02:15 98.0 94 18 121/58 (79) 05/19/20 19:24 98 I&O- Last 24 Hours up to 6 AM 05/21/20 06:00 Intake Total 1395 ml Output Total 1350 ml Balance 45 ml Aislinn Nation CNM May 21, 2020 05:09
[2020-05-21] MEDS: FENTANYL/ROPIVACAINE/NACL BAG 100 ML EPIDURAL SCH (11:29)
[2020-05-21] MEDS ORDERED: IBUPROFEN 800 MG TAB As Ordered ONE (19:27)
[2020-05-21] MEDS ORDERED: METHYLERGONOVINE MALEATE 0.2 MG TAB PO PRN (20:15)
[2020-05-21] MEDS ORDERED: MEASLES,MUMPS,RUBELLA VACCINE INJ (MMR-II) (90707) SC SCH (20:15)
[2020-05-21] MEDS ORDERED: OXYTOCIN DRIP 30 UNITS in IV 1 EA IV ONE (20:15)
[2020-05-21] MEDS ORDERED: DIBUCAINE 1% OINTMENT 30GM TOP PRN (20:15)
[2020-05-21] MEDS ORDERED: RHOGAM 300 MCG (1500 IU) INJ (J2790) IM SCH (20:15)
[2020-05-21] MEDS ORDERED: IBUPROFEN 600MG TAB PO PRN (20:15)
[2020-05-21] MEDS ORDERED: ACETAMINOPHEN TAB 650MG DOSE (2X325MG) PO PRN (20:15)
[2020-05-21] MEDS ORDERED: ACETAMINOPHEN 500 MG TAB PO PRN (20:15)
[2020-05-21] MEDS ORDERED: DOCUSATE SODIUM 100 MG CAP PO PRN (20:15)
[2020-05-22 06:00] VITALS: BP 125/57
[2020-05-22] MEDS: PRENATAL VITAMINS CHEWABLE TABLET PO SCH (10:00)
[2020-05-22] MEDS: IBUPROFEN 800 MG TAB PO PRN ×2 (10:09→20:28)
[2020-05-22] MEDS ORDERED: LIDOCAINE 1% MDV 20ML VIAL INFIL ONE (11:45)
[2020-05-22 17:59] VITALS: BP 136/75
[2020-05-23 06:00] VITALS: BP 143/79
[2020-05-23 06:30] VITALS: BP 140/78
[2020-05-23] MEDS ORDERED: IBUP80TA PO (06:59)
[2020-05-23] MEDS: IBUPROFEN 800 MG TAB PO PRN (07:30)
[2020-05-23] MEDS: PRENATAL VITAMINS CHEWABLE TABLET PO SCH (07:30)
--- NOTE | 2020-06-07 09:24 | IPN ---
DATE: 05/22/2020 This patient requested circumcision of her male . After discussing risks and benefits of circumcision, the medical and non-medical indications, the penile block and aftercare, expressed understanding of penile block, aftercare and bleeding. All questions were answered, 20 minute discussion. We await clearance by the grocery store associate. ALAN
== END 2020-05-23 19:10 | disposition home or self-care (01) | DRG 807 ==
LOC: M LDI 13:36 → M OBS 05-21 21:30
PROVIDERS: ADMIT Obstetrics & Gynecology; ATTEND Specialist
PROC: 0KQM0ZZ Repair Perineum Muscle, Open Approach (ICD-10-PCS; 2020-05-19)
PROC: 3E033VJ Introduction of Other Hormone into Peripheral Vein, Percutaneous Approach (ICD-10-PCS; 2020-05-19)
PROC: 10E0XZZ Delivery of Products of Conception, External Approach (ICD-10-PCS; principal; 2020-05-21)
DX: O13.4 Gestational [pregnancy-induced] hypertension without significant proteinuria, complicating childbirth (principal); Z37.0 Single live birth; Z3A.39 39 weeks gestation of pregnancy; O76 Abnormality in fetal heart rate and rhythm complicating labor and delivery; O70.1 Second degree perineal laceration during delivery

== ENCOUNTER → 2020-08-19 | Outpatient (CLI) | payer OTHER ==
--- NOTE | 2020-08-23 00:48 | ECWPNPC ---
PATIENT NAME: DARIN SAM : 1985 GENDER: FEMALE VISIT DATE: 08/19/2020 DISCHARGE DATE: 08/19/20 1501 VISIT LOCKED DATE TIME: PHYSICIAN: LAURA HURT PHYSICIAN PAGER NO: ACTIVE RESOURCE: LAURA HURT REASON FOR APPOINTMENT 1. KEEP 3O MINUTES HISTORY OF PRESENT ILLNESS DEPRESSION SCREENING: PHQ-2 (2015 EDITION) LITTLE INTEREST OR PLEASURE IN DOING THINGS?NOT AT ALL FEELING DOWN, DEPRESSED, OR HOPELESS?NOT AT ALL TOTAL SCORE0 GENERAL: HERE FOR FOLLOW-UP OF CHRONIC LOW BACK PAIN. WAS SCHEDULED FOR SACROILIAC JOINT BLOCK SEVERAL MONTHS AGO BUT CANCELED SHE WAS . STATES THAT SINCE HER BACK PAIN HAS RESOLVED. RATING PAIN LEVEL A 0/10 VAS. -. FALL RISK SCREENING: SCREENING :NO FALLS REPORTED IN THE LAST YEAR PAIN SCREENING: PATIENT HAS A COMPLAINT OF ACUTE OR CHRONIC PAIN :YES INTENSITY OF PAIN (SCALE OF 1 TO 10):0 NURSING NOTE: -. PAIN CENTER INTAKE QUESTIONS: DO YOU HAVE A HISTORY OF MRSA? :NO DO YOU TAKE A BLOOD THINNERS? :NO DO YOU HAVE ANY BLEEDING DISORDERS? :NO ANY NEW NUMBNESS OR WEAKNESS IN YOUR LEGS OR ARMS? :NO ANY PACEMAKER,DEFIBRILLATOR, OR DORSAL COLUMN STIMULATOR? :NO DO YOU HAVE ANY RASHES OR OPEN SORES? :NO ARE YOU ALLERGIC TO IV DYE? :NO ARE YOU DIABETIC? :NO ANY NEW PROBLEMS WITH YOUR MEDICATIONS? :NO HAVE YOU RECEIVED A VACCINE IN THE PAST 30 DAYS? :NO DO YOU PLAN TO RECEIVE A VACCINE IN THE NEXT 21 DAYS? :NO DO YOU NEED ANY PRESCRIPTION? :NO DO YOU TAKE ANY IMMUNOSUPPRESSIVE MEDICATIONS? :NO IS THERE A CHANCE YOU COULD BE ? :NO ARE YOU BREAST FEEDING? :NO CURRENT MEDICATIONS TAKING PRE-PADILLA - TABLET 1 TABLET ORALLY ONCE A DAY TAKING PROBIOTIC - CAPSULE DIRECTED ORALLY TAKING KISHA 0.35 MG TABLET 1 TABLET ORALLY ONCE A DAY NOT-TAKING ALCOHOL PADS 70 % PAD DIRECTED TOPICAL TO TEST UP TO 4 TIMES PER DAY NOT-TAKING FREESTYLE INSULINX SYSTEM W/DEVICE KIT DIRECTED , NOTES: OR GLUCOMETER WITH MATERIALS THAT IS COVERED BY INSURANCE. NOT-TAKING FREESTYLE INSULINX TEST - STRIP DIRECTED IN VITRO TO TEST UP TO 4 TIMES PER DAY NOT-TAKING FREESTYLE LANCETS - MISCELLANEOUS DIRECTED TO TEST UP TO 4 TIMES PER DAY NOT-TAKING SHARPS CONTAINER - MISCELLANEOUS DIRECTED NOT-TAKING PROBIOTIC - CAPSULE 1 CAPSULE ORALLY DAILY NOT-TAKING NAPROSYN 500 MG TABLET 1 TABLET WITH FOOD OR MILK NEEDED ORALLY EVERY 12 HRS NOT-TAKING MULTIVITAMINS TAB TABLET 1 PO ORALLY DAILY NOT-TAKING FOLIC ACID 400 MCG TABLET 1 TABLET ORALLY ONCE A DAY NOT-TAKING HYDROXYZINE HCL 25 MG TABLET 1-2 TABLETS NEEDED ORALLY EVERY 8 HRS NOT-TAKING ESCITALOPRAM OXALATE 10 MG TABLET 1 TABLET ORALLY ONCE A DAY NOT-TAKING CYCLOBENZAPRINE HCL 5 MG TABLET 1 TABLET NEEDED ORALLY THREE TIMES A DAY NOT-TAKING IBUPROFEN 400 MG TABLET 1 TABLET ORALLY THREE TIMES A DAY NOT-TAKING BENZONATATE 200 MG CAPSULE 1 CAPSULE ORALLY THREE TIMES A DAY NOT-TAKING [facility] VITAMIN D3 1000 UNIT TABLET CHEWABLE 1 TABLET ORALLY ONCE A DAY MEDICATION LIST REVIEWED AND RECONCILED WITH THE PATIENT PAST MEDICAL HISTORY DYSMENORRHEA[MODERATE] KIDNEY INFECTION 05/12 BACK PAIN ANXIETY ALLERGIES N.K.D.A. SURGICAL HISTORY COLPOSCOPY WITH [facility]WIN 01/02/2016 & 01/14/17 MEET [facility] 2017 FAMILY HISTORY FATHER: ALIVE 62 YRS, DIAGNOSED WITH HYPERTENSION MOTHER: ALIVE 59 YRS, HYPERTENSION SIBLINGS: ALIVE PATERNAL GRAND FATHER: ALIVE, DC, HX OF MM MATERNAL GRAND FATHER: , CANCER, PROSTATE, CANCER, SKIN 1 SISTER(S) - HEALTHY. 1 SON(S) - HEALTHY. FAMILY HISTORY OF SKIN CA, LEUKEMIA AND CA OF THE ESOPHAGUS. SOCIAL HISTORY GENERAL: TOBACCO USE ARE YOU A:FORMER SMOKER HOW LONG HAS IT BEEN SINCE YOU LAST SMOKED?1-5 YEARS VAPORNO E-CIGARETTENO LATEX QUESTIONNAIRE LATEX ALLERGY : HAVE YOU EVER DEVELOPED ANY TYPE OF REACTION AFTER HANDLING LATEX PRODUCTS SUCH RUBBER GLOVES, CONDOMS, DIAPHRAGMS, BALLOONS, SOCKS, OR UNDERWEAR?NO LATEX ALLERGY : HAVE YOU EVER DEVELOPED ANY TYPE OF REACTION DURING OR AFTER DENTAL APPOINTMENT, VAGINAL/RECTAL EXAMINATION, SURGICAL PROCEDURE, OR ANY OTHER EXPOSURE?NO DATE ASKED : 02/25/2020 LATEX RISK : HAVE YOU EVER HAD ANY DIFFICULTY BREATHING OR HIVES AFTER EATING OR HANDLING ANY FRUITS, OR VEGETABLES; SUCH KIWI, BANANAS, STONE FRUITS, OR CHESTNUTSNO LATEX RISK : DO YOU HAVE A PREVIOUS PERSONAL HISTORY OF MORE THAN NINE SURGERIES, SPINA BIFIDA, OR REPEATED CATHERIZATIONS? NO LATEX RISK : ARE YOU FREQUENTLY EXPOSED TO LATEX PRODUCTS IN YOUR OCCUPATION?NO BMI CARE GOAL FOLLOW-UP ABOVE NORMAL BMI FOLLOW-UPGIVING ENCOURAGEMENT TO EXERCISE ALCOHOL SCREENING DID YOU HAVE A DRINK CONTAINING ALCOHOL IN THE PAST YEAR?NO POINTS0 INTERPRETATIONNEGATIVE RECREATIONAL DRUG USE DRUG USE?NO CAFFEINE CAFFEINE USE?YES 1-2 CUPS OF COFFEE MOSQUE NO LUTHERAN BELIEFS THAT WOULD IMPACT HEALTH CARE. LANGUAGE TAIWANESE. 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 DIET: REGULAR. PAIN CLINIC PFS, CLERGY, PUBLIC HEALTH REFERRALS HAS THE PATIENT BEEN EDUCATED REGARDING HIS/HER PLAN OF CARE?YES HAS THE PATIENT BEEN EDUCATED REGARDING PAIN, THE RISK FOR PAIN, THE IMPORTANCE OF EFFECTIVE PAIN MANAGEMENT, AND THE PAIN ASSESSMENT PROCESS?YES ADVANCE DIRECTIVE ADVANCE DIRECTIVE DISCUSSED WITH PATIENT:YES PT DOES NOT HAVE ANY ADVANCED DIRECTIVES AND SHE DECLINES INFORMATION ON HCP AT THIS TIME. HOSPITALIZATION/MAJOR DIAGNOSTIC PROCEDURE CHILDBIRTH 05/2020 REVIEW OF SYSTEMS CONSTITUTIONAL: ANY RECENT FEVER NO . CHILLS NO . WEIGHT CHANGE OF UNKNOWN REASONS NO . GASTROENTEROLOGY: NEW UNEXPLAINABLE CHANGES IN BOWEL CONTROL NO . CONSTIPATION NO . GENITOURINARY: ANY NEW CHANGE IN BLADDER CONTROL? NO . NEUROLOGY: NEW ONSET DIZZINESS OR NEUROLOGICAL CHANGES NOT MENTIONED NO . NEW NUMBNESS OR PAIN PATTERNS NOT MENTIONED AND PERTINENT TO TODAY'S VISIT NO . CARDIOLOGY: NEW CHEST PRESSURE NO . NEW CHEST PAIN NO . RESPIRATORY: UNEXPLAINABLE COUGH NO . NEW SHORTNESS OF BREATH NO . VITAL SIGNS WT 277 LBS, HT 65 IN, BMI 46.09 INDEX, BP 139/72 MM HG, HR 84 /MIN, RR 16 /MIN, TEMP 97.7 F, OXYGEN SAT % 98, SAFE IN ENV? (Y/N) Y, REVIEWED BY: EM. EXAMINATION GENERAL EXAMINATION: GENERALAWAKE,ALERT ,PLEASANT . PSYCHAFFECT NORMAL . LUNGS:LUNG HERNANDEZ ARE CLEAR TO AUSCULTATION BILATERALLY. GOOD MOVEMENT OF AIR . HEART:S1, S2 IN A REGULAR RATE AND RHYTHM. NO SIGNIFICANT MURMURS, RUBS OR GALLOPS NOTED . ASSESSMENTS BILATERAL SACROILIITIS - M46.1 (PRIMARY) TREATMENT BILATERAL SACROILIITIS NOTES: CONTINUE HOME EXCERSISE AND STRETCHING. PROCEDURE CODES FA211 ESTABILISHED PATIENT [facility] CHARGE DISPOSITION & COMMUNICATION FOLLOW UP PT WILL CALL FOR F/U IF NECESSARY (REASON: LOW BACK PAIN) ELECTRONICALLY SIGNED BY OMER OLIVAS ON 08/22/2020 AT 02:14 PM EST DISCLAIMER : THIS IS A VISIT SUMMARY EXTRACTED FROM THE [employer] CHART. IT IS NOT A COPY OF THE [employer] PROGRESS NOTE. ALAN
== END ==
LOC: M PAIN 14:30
PROVIDERS: ATTEND Nurse Practitioner Family
DX: M46.1 Sacroiliitis, not elsewhere classified (principal); G89.29 Other chronic pain; Z86.59 Personal history of other mental and behavioral disorders; Z87.891 Personal history of nicotine dependence; E66.01 Morbid (severe) obesity due to excess calories; Z68.42 Body mass index [BMI] 45.0-49.9, adult; Z79.899 Other long term (current) drug therapy

== ENCOUNTER → 2020-11-18 | Outpatient (REF) | payer OTHER | LOC: M LAB REF 17:13 | PROVIDERS: ATTEND Physician Assistant | DX: D23.5 Other benign neoplasm of skin of trunk (principal) ==

== ENCOUNTER → 2021-06-06 | Outpatient (REF) | payer OTHER | LOC: M SFHCWAGY 12:24 | PROVIDERS: ATTEND Nurse Practitioner Women's Health | DX: Z12.4 Encounter for screening for malignant neoplasm of cervix (principal); Z01.419 Encounter for gynecological examination (general) (routine) without abnormal findings; Z77.9 Other contact with and (suspected) exposures hazardous to health ==

== ENCOUNTER → 2021-07-14 | Outpatient (REF) | payer OTHER ==
[2021-07-14 11:53] LABS: BASO # 0.1 10^3/uL (0.0-0.2); BASO % 0.8 % (0.0-1.0); EOS # 0.3 10^3/uL (0.0-0.5); EOS % 3.1 % (0.0-3.0); HEMATOCRIT 43.1 % (36.0-47.0); HEMOGLOBIN 13.3 g/dl (12.0-15.5); LYMPH # 3.1 10^3/uL (1.5-5.0); LYMPH % 32.4 % (24.0-44.0); MEAN CORPUSCULAR HEMOGLOBIN 25.2 pg (27.0-33.0); MEAN CORPUSCULAR HGB CONC 30.9 g/dl (32.0-36.5); MEAN CORPUSCULAR VOLUME 81.6 fl (80.0-96.0); MONO # 0.6 10^3/uL (0.0-0.8); MONO % 6.3 % (2.0-8.0); NEUTROPHILS # 5.4 10^3/uL (1.5-8.5); NEUTROPHILS % 56.9 % (36.0-66.0); PLATELET COUNT, AUTOMATED 345 10^3/uL (150-450); RED BLOOD COUNT 5.28 10^6/uL (4.00-5.40); WHITE BLOOD COUNT 9.6 10^3/uL (4.0-10.0)
[2021-07-14 12:47] LABS: ALBUMIN 3.4 GM/DL (3.2-5.2); ALT/SGPT 43 U/L (12-78); BILIRUBIN,TOTAL 0.3 MG/DL (0.2-1.0); BLOOD UREA NITROGEN 8 MG/DL (7-18); CALCIUM LEVEL 9.8 MG/DL (8.5-10.1); CARBON DIOXIDE LEVEL 30 MEQ/L (21-32); CHLORIDE LEVEL 104 MEQ/L (98-107); CHOLESTEROL LEVEL 227 MG/DL (<200); CHOLESTEROL RISK RATIO 4.127 (<5); CREATININE FOR GFR 0.88 MG/DL (0.55-1.30); GLOMERULAR FILTRATION RATE > 60.0 (>60); GLUCOSE, FASTING 94 MG/DL (70-100); HDL CHOLESTEROL 55 MG/DL (>40); LDL CHOLESTEROL 146 MG/DL (<100); NON-HDL-C 172 MG/DL; POTASSIUM SERUM 4.3 MEQ/L (3.5-5.1); SODIUM LEVEL 139 MEQ/L (136-145); TOTAL PROTEIN 7.2 GM/DL (6.4-8.2); TRIGLYCERIDES LEVEL 131 MG/DL (<150); VITAMIN B12 LEVEL 345 PG/ML
[2021-07-14 12:48] LABS: TOTAL 25(OH) VITAMIN D 23.5 NG/ML (30.0-100.0)
[2021-07-14 14:02] LABS: HEMOGLOBIN A1c 5.5 %
== END ==
LOC: M SFHCCLAY 07:59
PROVIDERS: ATTEND Physician Assistant
DX: E55.9 Vitamin D deficiency, unspecified (principal); E66.01 Morbid (severe) obesity due to excess calories; R45.86 Emotional lability; K21.9 Gastro-esophageal reflux disease without esophagitis

== ENCOUNTER → 2021-12-15 | Outpatient (REF) | payer OTHER ==
[2021-12-15 12:21] LABS: ALBUMIN 3.4 GM/DL (3.2-5.2); ALT/SGPT 43 U/L (12-78); BILIRUBIN,TOTAL 0.2 MG/DL (0.2-1.0); BLOOD UREA NITROGEN 9 MG/DL (7-18); CALCIUM LEVEL 9.4 MG/DL (8.5-10.1); CARBON DIOXIDE LEVEL 29 MEQ/L (21-32); CHLORIDE LEVEL 106 MEQ/L (98-107); CHOLESTEROL LEVEL 218 MG/DL (<200); CHOLESTEROL RISK RATIO 4.274 (<5); CREATININE FOR GFR 0.74 MG/DL (0.55-1.30); GLOMERULAR FILTRATION RATE > 60.0 (>60); GLUCOSE, FASTING 100 MG/DL (70-100); HDL CHOLESTEROL 51 MG/DL (>40); LDL CHOLESTEROL 141 MG/DL (<100); NON-HDL-C 167 MG/DL; POTASSIUM SERUM 4.3 MEQ/L (3.5-5.1); SODIUM LEVEL 140 MEQ/L (136-145); TOTAL PROTEIN 6.9 GM/DL (6.4-8.2); TRIGLYCERIDES LEVEL 128 MG/DL (<150)
[2021-12-15 12:24] LABS: TOTAL 25(OH) VITAMIN D 23.8 NG/ML (30.0-100.0)
== END ==
LOC: M SFHCCLAY 07:06
PROVIDERS: ATTEND Physician Assistant
DX: E55.9 Vitamin D deficiency, unspecified (principal); E78.00 Pure hypercholesterolemia, unspecified

== ENCOUNTER → 2022-06-08 | Outpatient (REF) | payer OTHER | LOC: M SFHCWAGY 09:57 | PROVIDERS: ATTEND Nurse Practitioner Family | DX: Z12.4 Encounter for screening for malignant neoplasm of cervix (principal); Z01.419 Encounter for gynecological examination (general) (routine) without abnormal findings; Z77.9 Other contact with and (suspected) exposures hazardous to health ==

== ENCOUNTER → 2023-09-23 | Outpatient (REF) | payer OTHER ==
[2023-09-23 12:18] LABS: BASO # 0.1 10^3/uL (0.0-0.2); EOS # 0.3 10^3/uL (0.0-0.5); EOS % 4.7 % (0.0-3.0); HEMATOCRIT 41.9 % (36.0-47.0); HEMOGLOBIN 13.1 g/dl (12.0-15.5); LYMPH # 3.2 10^3/uL (1.5-5.0); MEAN CORPUSCULAR HEMOGLOBIN 26.5 pg (27.0-33.0); MEAN CORPUSCULAR HGB CONC 31.3 g/dl (32.0-36.5); MEAN CORPUSCULAR VOLUME 84.6 fl (80.0-96.0); MONO # 0.7 10^3/uL (0.0-0.8); MONO % 10.6 % (2.0-8.0); NEUTROPHILS # 2.6 10^3/uL (1.5-8.5); NEUTROPHILS % 37.6 % (36.0-66.0); PLATELET COUNT, AUTOMATED 316 10^3/uL (150-450); RED BLOOD COUNT 4.95 10^6/uL (4.00-5.40)
[2023-09-23 12:49] LABS: FOLATE 9.4 NG/ML (>5.4); TOTAL 25(OH) VITAMIN D 42.2 NG/ML (20.0-100.0)
[2023-09-23 12:50] LABS: THYROID STIMULATING HORMONE 1.873 uIU/ML (0.55-4.78); VITAMIN B12 LEVEL 352 PG/ML (211-911)
[2023-09-23 12:53] LABS: ALBUMIN 3.5 G/DL (3.2-5.2); ALKALINE PHOSPHATASE 68 U/L (46-116); ALT/SGPT 38 U/L (7.0-40); AST/SGOT 22 U/L (<34); BILIRUBIN,TOTAL 0.3 MG/DL (0.3-1.2); BLOOD UREA NITROGEN 10 MG/DL (9-23); CALCIUM LEVEL 8.7 MG/DL (8.5-10.1); CARBON DIOXIDE LEVEL 30 MMOL/L (20-31); CHLORIDE LEVEL 107 MMOL/L (98-107); CHOLESTEROL LEVEL 167 MG/DL (<200); CHOLESTEROL RISK RATIO 3.53 (<5); CREATININE FOR GFR 0.73 MG/DL (0.55-1.30); GLOMERULAR FILTRATION RATE > 60.0 (>60); GLUCOSE, FASTING 94 MG/DL (60-100); HDL CHOLESTEROL 47.3 MG/DL (>40); LDL CHOLESTEROL 101.9 MG/DL (<100); NON-HDL-C 119.7 MG/DL; POTASSIUM SERUM 4.3 MMOL/L (3.5-5.1); SODIUM LEVEL 143 MMOL/L (136-145); TOTAL PROTEIN 6.6 G/DL (5.7-8.2); TRIGLYCERIDES LEVEL 89 MG/DL (<150)
== END ==
LOC: M SFHCCLAY 08:06
PROVIDERS: ATTEND Physician Assistant
DX: E55.9 Vitamin D deficiency, unspecified (principal); E78.5 Hyperlipidemia, unspecified

== ENCOUNTER → 2024-09-09 | Outpatient (REF) | payer OTHER ==
[2024-09-09 13:20] LABS: ALBUMIN 3.6 G/DL (3.2-5.2); ALKALINE PHOSPHATASE 76 U/L (35-104); ALT/SGPT 40 U/L (7.0-40); AST/SGOT 29 U/L (<34); BILIRUBIN,TOTAL 0.3 MG/DL (0.3-1.2); BLOOD UREA NITROGEN 11 MG/DL (9-23); CALCIUM LEVEL 9.2 MG/DL (8.5-10.1); CARBON DIOXIDE LEVEL 33 MMOL/L (20-31); CHLORIDE LEVEL 104 MMOL/L (98-107); CHOLESTEROL LEVEL 178 MG/DL (<200); CHOLESTEROL RISK RATIO 3.64 (<5); CREATININE FOR GFR 0.74 MG/DL (0.55-1.30); GLOMERULAR FILTRATION RATE > 60.0 (>60); GLUCOSE, FASTING 90 MG/DL (60-100); HDL CHOLESTEROL 48.9 MG/DL (>40); LDL CHOLESTEROL 114.9 MG/DL (<100); NON-HDL-C 129.1 MG/DL; POTASSIUM SERUM 3.8 MMOL/L (3.5-5.1); SODIUM LEVEL 141 MMOL/L (136-145); TOTAL PROTEIN 6.9 G/DL (5.7-8.2); TRIGLYCERIDES LEVEL 71 MG/DL (<150)
[2024-09-09 13:21] LABS: HEMOGLOBIN A1c 5.6 % (4.0-6.0)
[2024-09-09 13:22] LABS: FREE T4 1.07 NG/DL (0.89-1.76); THYROID STIMULATING HORMONE 1.299 uIU/ML (0.55-4.78)
== END ==
LOC: M SFHCCLAY 09:17
PROVIDERS: ATTEND Physician Assistant
DX: I10 Essential (primary) hypertension (principal); G56.03 Carpal tunnel syndrome, bilateral upper limbs; E66.01 Morbid (severe) obesity due to excess calories; E55.9 Vitamin D deficiency, unspecified; F90.9 Attention-deficit hyperactivity disorder, unspecified type; K21.9 Gastro-esophageal reflux disease without esophagitis

== ENCOUNTER → 2025-04-28 | Outpatient (REF) | payer OTHER ==
[2025-04-28 13:05] LABS: CALCIUM LEVEL 9.5 MG/DL (8.5-10.1); CARBON DIOXIDE LEVEL 33 MMOL/L (20-31); CHLORIDE LEVEL 100 MMOL/L (98-107); CREATININE FOR GFR 0.77 MG/DL (0.55-1.30); GLOMERULAR FILTRATION RATE > 90.0 (>60); POTASSIUM SERUM 3.3 MMOL/L (3.5-5.1); SODIUM LEVEL 142 MMOL/L (136-145)
== END ==
LOC: M SFHCCLAY 08:32
PROVIDERS: ATTEND Physician Assistant
DX: I10 Essential (primary) hypertension (principal)

== ENCOUNTER → 2025-05-06 | Outpatient (REF) | payer OTHER ==
[2025-05-06 18:30] LABS: CALCIUM LEVEL 9.8 MG/DL (8.5-10.1); CARBON DIOXIDE LEVEL 32 MMOL/L (20-31); CHLORIDE LEVEL 99 MMOL/L (98-107); CREATININE FOR GFR 0.76 MG/DL (0.55-1.30); GLOMERULAR FILTRATION RATE > 90.0 (>60); POTASSIUM SERUM 3.3 MMOL/L (3.5-5.1); SODIUM LEVEL 141 MMOL/L (136-145)
== END ==
LOC: M SFHCCLAY 10:03
PROVIDERS: ATTEND Physician Assistant
DX: E87.6 Hypokalemia (principal)

== ENCOUNTER → 2025-06-01 | Outpatient (REF) | payer OTHER ==
[2025-06-03 16:14] LABS: HPV APTIMA Not Detected (Not Detected)
== END ==
LOC: M SFHCWAGY 15:34
PROVIDERS: ATTEND Physician Assistant
DX: Z12.4 Encounter for screening for malignant neoplasm of cervix (principal)